=== PATIENT | female | born 1970 | race Caucasian/White ===

== ENCOUNTER → 2018-07-11 | Outpatient (CLI) | payer SELFPAY ==
[2018-07-11 08:26] LABS: ALBUMIN 3.6 gm/dl (3.1-4.5); ALKALINE PHOSPHATASE 74 U/L (45-117); BASO # 0.1 10*3/uL (0.0-0.1); BASO % 0.9 % (0.0-1.0); BUN 11 mg/dl (7-24); CHLORIDE 107 mmol/L (98-107); CHOLESTEROL 155 mg/dL (<200); CREATININE 0.74 mg/dL (0.55-1.02); EOS # 0.1 10*3/uL (0.0-0.4); EOS % 1.9 % (1.0-4.0); HDL CHOLESTEROL 39 mg/dl (40-60); HEMATOCRIT 31.3 % (37.0-47.0); HEMOGLOBIN 8.8 g/dl (12.0-16.0); IRON 20 ug/dL (50-170); LDL CHOLESTEROL 82 mg/dL (9-159); LYMPH # 2.5 10*3/uL (1.3-4.4); LYMPH % 33.6 % (27.0-41.0); MEAN CELL VOLUME 66.2 fl (81.0-99.0); MEAN CORPUSCULAR HGB 18.6 pg (27.0-31.0); MEAN CORPUSCULAR HGB CONC 28.1 g/dl (33.0-37.0); MONO # 0.6 10*3/uL (0.1-1.0); MONO % 7.3 % (3.0-9.0); NEUT # 4.2 10*3/uL (2.3-7.9); PLATELET COUNT AUTOMATED 341 10*3/uL (130-400); POTASSIUM 3.8 mmol/L (3.5-5.1); RED BLOOD COUNT 4.73 10*6/uL (4.10-5.10); RED CELL DISTRI WIDTH 20.2 % (0-14.5); SGOT/AST 11 IU/L (3-35); SGPT/ALT 21 U/L (12-78); SODIUM 140 mmol/L (136-145); TOTAL IRON BINDING CAPACITY 444 ug/dl (250-450); TOTAL PROTEIN 7.2 gm/dL (6.4-8.2); TRIGLYCERIDES 170 mg/dl (<150); VLDL CHOLESTEROL 34 mg/dL (6-40); WHITE BLOOD COUNT 7.5 10*3/uL (4.8-10.8)
[2018-07-11 08:47] LABS: BILIRUBIN NEGATIVE (NEGATIVE); BLOOD NEGATIVE (NEGATIVE); CLARITY SL CLOUDY (CLEAR); COLOR YELLOW (YELLOW); GLUCOSE NEGATIVE (NEGATIVE); KETONE NEGATIVE (NEGATIVE); LEUKO ESTERASE NEGATIVE (NEGATIVE); NITRITE NEGATIVE (NEGATIVE); PH 6.5 (5.0-9.0); UROBILINOGEN 0.2 E.U./dl (0.2-1.0)
[2018-07-11 09:25] LABS: BACTERIA 1+
== END | disposition home or self-care (01) ==
LOC: LAB 07:35
PROVIDERS: Family Medicine
DX: I10 Essential (primary) hypertension (principal); G25.81 Restless legs syndrome; E78.49 Other hyperlipidemia

== ENCOUNTER → 2023-05-01 | Outpatient (CLI) | payer OTHER | END | disposition home or self-care (01) | LOC: MAMMO 15:56 | PROVIDERS: ATTEND Family Medicine | DX: Z12.31 Encounter for screening mammogram for malignant neoplasm of breast (principal) ==

== ENCOUNTER → 2023-05-16 | Outpatient (CLI) | payer OTHER | END | disposition home or self-care (01) | LOC: US 14:58 | PROVIDERS: ATTEND Family Medicine | DX: D48.61 Neoplasm of uncertain behavior of right breast (principal); N63.23 Unspecified lump in the left breast, lower outer quadrant; N60.01 Solitary cyst of right breast ==

== ENCOUNTER → 2023-06-12 | Outpatient (CLI) | payer OTHER | END | disposition home or self-care (01) | LOC: US 00:41 | PROVIDERS: ATTEND Family Medicine | DX: D48.61 Neoplasm of uncertain behavior of right breast (principal); Z53.8 Procedure and treatment not carried out for other reasons ==